=== PATIENT | female | born 1995 | race Caucasian/White ===

== ENCOUNTER 2016-12-20 09:21 | Emergency (ER) | payer OTHER ==
[~2016-12-20] VITALS: Ht 162.6 cm; Wt 79.4 kg
[2016-12-20] MEDS ORDERED: NS 500 ML IV ONE (10:45)
[2016-12-20] MEDS ORDERED: METOCLOPRAMIDE INJ 10MG/2ML VIAL (J2765) IV ONE (10:45)
[2016-12-20 11:19] LABS: BASO % 0.2 % (0.0-1.0); EOS # 0.2 K/mm3 (0.0-0.50); EOS % 1.7 % (0.0-3.0); LARGE UNSTAINED CELL # 0.1 K/mm3 (0.0-0.4); LARGE UNSTAINED CELL % 1.1 % (0.0-4.0); LYMPH # 1.9 K/mm3 (1.5-6.5); LYMPH % 21.8 % (24.0-44.0); MEAN CORPUSCULAR HEMOGLOBIN 28.8 pg (27.0-33.0); MEAN CORPUSCULAR HGB CONC 34.5 g/dl (32.0-36.5); MEAN CORPUSCULAR VOLUME 83.5 fl (80.0-96.0); MONO # 0.5 K/mm3 (0.0-0.8); MONO % 6.1 % (0.0-5.0); PLATELET COUNT, AUTOMATED 279 k/mm3 (150-450); RED CELL DISTRIBUTION WIDTH 13.5 % (11.5-14.5); WHITE BLOOD COUNT 8.7 K/mm3 (4.0-10.0)
[2016-12-20 11:36] LABS: ANION GAP 6 MEQ/L (8-16); BLOOD UREA NITROGEN 9 MG/DL (7-18); CALCIUM LEVEL 9.2 MG/DL (8.5-10.1); CARBON DIOXIDE LEVEL 26 MEQ/L (21-32); CHLORIDE LEVEL 107 MEQ/L (98-107); GLOMERULAR FILTRATION RATE > 60.0 (>60); GLUCOSE, FASTING 81 MG/DL (70-105); SODIUM LEVEL 139 MEQ/L (136-145)
[2016-12-20 11:44] VITALS: BP 134/90
[2016-12-20 11:50] LABS: METHADONE URINE NEGATIVE (NEGATIVE)
[2016-12-20] MEDS ORDERED: MACR100C3 PO (12:06)
--- NOTE | 2016-12-20 14:28 | ECGEPIP ---
Stationary ECG Study [facility] - ED Test Date: 2016-12-20 Pat Name: ARIEL FRANCO Department: Room: - Gender: F Decontamination Worker: tk : 1995 Requested By: JAMILA Britton PA-C Order Number: [id number] Reading MD: Neva Kelley Measurements Intervals [place] Rate: 82 P: 41 DC: 152 QRS: -22 QRSD: 95 T: 5 QT: 351 QTc: 411 Interpretive Statements SINUS RHYTHM BORDERLINE LEFT AXIS DEVIATION NO PRIOR FOR COMPARISON Electronically Signed On 12-20-2016 14:28:46 EDT by Neva Kelley
== END 2016-12-20 12:17 | disposition home or self-care (01) ==
LOC: M ED 10:29
DX: N39.0 Urinary tract infection, site not specified (principal); R11.0 Nausea; R42 Dizziness and giddiness; E03.9 Hypothyroidism, unspecified
CPT/HCPCS: 36415; 80048; 80306; 81001; 81025; 82550; 82553; 84443; 85025; 93005; 96374; 99284; J2765

== ENCOUNTER 2016-12-23 02:13 | Emergency (ER) | payer OTHER ==
[~2016-12-23] VITALS: Ht 162.6 cm; Wt 81.6 kg
[~2016-12-23 02:13] MED LIST: MACR100C3 PO
[2016-12-23 02:26] VITALS: BP 126/78
[2016-12-23] MEDS ORDERED: predniSONE 20 MG TAB PO ONE (04:15)
[2016-12-23] MEDS ORDERED: PRED20TA PO (04:21)
[2016-12-23] MEDS ORDERED: BACT800T5 PO (04:22)
== END 2016-12-23 04:30 | disposition home or self-care (01) ==
LOC: M ED 03:18
DX: T78.40XA Allergy, unspecified, initial encounter (principal); R21 Rash and other nonspecific skin eruption; N39.0 Urinary tract infection, site not specified; Z79.2 Long term (current) use of antibiotics

== ENCOUNTER 2017-03-08 05:11 | Emergency (ER) | payer OTHER ==
[~2017-03-08] VITALS: Ht 162.6 cm; Wt 77.3 kg
[~2017-03-08 05:11] MED LIST changes: +BACT800T5 PO; -MACR100C3 PO; +MACR100C43 PO; +PRED20TA PO
[2017-03-08] MEDS ORDERED: NS 1,000 ML IV ONE (06:15)
[2017-03-08 06:33] LABS: BASO % 0.4 % (0.0-1.0); EOS # 0.2 K/mm3 (0.0-0.50); EOS % 2.2 % (0.0-3.0); LARGE UNSTAINED CELL # 0.1 K/mm3 (0.0-0.4); LARGE UNSTAINED CELL % 1.2 % (0.0-4.0); MEAN CORPUSCULAR HEMOGLOBIN 29.8 pg (27.0-33.0); MEAN CORPUSCULAR HGB CONC 34.8 g/dl (32.0-36.5); MEAN CORPUSCULAR VOLUME 85.6 fl (80.0-96.0); MONO # 0.4 K/mm3 (0.0-0.8); MONO % 4.7 % (0.0-5.0); NEUTROPHILS % 57.6 % (36.0-66.0); PLATELET COUNT, AUTOMATED 327 k/mm3 (150-450); RED CELL DISTRIBUTION WIDTH 13.5 % (11.5-14.5); WHITE BLOOD COUNT 8.6 K/mm3 (4.0-10.0)
[2017-03-08 06:44] LABS: CONTROL LINE HCG INT CTR LINE PRESENT
[2017-03-08 06:47] LABS: ANION GAP 8 MEQ/L (8-16); BLOOD UREA NITROGEN 14 MG/DL (7-18); CALCIUM LEVEL 8.3 MG/DL (8.5-10.1); CARBON DIOXIDE LEVEL 25 MEQ/L (21-32); CHLORIDE LEVEL 108 MEQ/L (98-107); CREATININE FOR GFR 0.65 MG/DL (0.55-1.02); GLOMERULAR FILTRATION RATE > 60.0 (>60); GLUCOSE, FASTING 98 MG/DL (70-105); POTASSIUM SERUM 3.8 MEQ/L (3.5-5.1); SODIUM LEVEL 141 MEQ/L (136-145)
[2017-03-08 07:23] LABS: ABG BASE EXCESS -5.3 (-2.0-2.0); ABG HCO3 17.2 MEQ/L (22.0-26.0); ABG PARTIAL PRESSURE CO2 26.1 mmHg (35.0-45.0); ABG PARTIAL PRESSURE O2 213.4 mmHg (75.0-100.0); ABG STANDARD HCO3 20.2 MEQ/L (22.0-26.0); ABG pH (ARTERIAL) 7.437 UNITS (7.350-7.450)
[2017-03-08 08:37] VITALS: BP 128/64
== END 2017-03-08 08:38 | disposition home or self-care (01) ==
LOC: M ED 05:11
DX: R42 Dizziness and giddiness (principal)

== ENCOUNTER 2017-03-12 19:26 | Emergency (ER) | payer OTHER ==
[~2017-03-12] VITALS: Ht 162.6 cm; Wt 81.5 kg
[2017-03-12] MEDS ORDERED: ONDANSETRON 4MG/2ML VIAL (J2405) IV ONE (22:45)
[2017-03-12] MEDS ORDERED: KETOROLAC 30 MG/ML VIAL (J1885) IV ONE (22:45)
[2017-03-12 23:21] LABS: MICROSCOPIC INDICATED? MAN NO (NO)
[2017-03-12 23:22] LABS: BASO % 0.4 % (0.0-1.0); EOS # 0.2 K/mm3 (0.0-0.50); EOS % 1.7 % (0.0-3.0); LARGE UNSTAINED CELL # 0.2 K/mm3 (0.0-0.4); LARGE UNSTAINED CELL % 1.2 % (0.0-4.0); LYMPH # 4.3 K/mm3 (1.5-6.5); LYMPH % 32.3 % (24.0-44.0); MEAN CORPUSCULAR HGB CONC 34.5 g/dl (32.0-36.5); MEAN CORPUSCULAR VOLUME 87.1 fl (80.0-96.0); MONO # 0.5 K/mm3 (0.0-0.8); MONO % 3.9 % (0.0-5.0); NEUTROPHILS # 7.7 K/mm3 (1.8-7.7); NEUTROPHILS % 60.5 % (36.0-66.0); PLATELET COUNT, AUTOMATED 389 k/mm3 (150-450); RED CELL DISTRIBUTION WIDTH 13.3 % (11.5-14.5); WHITE BLOOD COUNT 12.7 K/mm3 (4.0-10.0)
[2017-03-12 23:45] LABS: ANION GAP 7 MEQ/L (8-16); BLOOD UREA NITROGEN 10 MG/DL (7-18); CALCIUM LEVEL 9.4 MG/DL (8.5-10.1); CARBON DIOXIDE LEVEL 29 MEQ/L (21-32); CHLORIDE LEVEL 102 MEQ/L (98-107); CREATININE FOR GFR 0.66 MG/DL (0.55-1.02); GLOMERULAR FILTRATION RATE > 60.0 (>60); GLUCOSE, FASTING 94 MG/DL (70-105); MAGNESIUM LEVEL 2.4 MG/DL (1.8-2.4); POTASSIUM SERUM 3.6 MEQ/L (3.5-5.1); SODIUM LEVEL 138 MEQ/L (136-145)
--- NOTE | 2017-03-13 00:40 | REPUSA ---
CLINICAL HISTORY: Syncope. TECHNIQUE: Multiple axial brain CT scan sections were obtained from base to vertex without contrast a dministration. COMMENTS: The study shows normal configuration of sella turcica. There are no intra or extra-axial collections. There is no mass effect or midline shift. There is no evidence of hematoma formation. No hydrocephal us is present. No abnormal calcifications are noted. No significant abnormalities are seen either in the posterior fossa or supratentorial compartment. The sinuses and mastoid air cells are patent. IMPRESSION: No evidence of acute intracranial pathology. Thank you for your kind referral of this patient.
[2017-03-13 00:56] VITALS: BP 122/78
== END 2017-03-13 00:56 | disposition home or self-care (01) ==
LOC: M ED 19:26
DX: R51 Headache (principal); E03.9 Hypothyroidism, unspecified
CPT/HCPCS: 70450; 80048; 81002; 83735; 84443; 85025; 87880; 96374; 96375; 99284; J1885; J2405

== ENCOUNTER 2017-03-17 05:36 | Emergency (ER) | payer OTHER, SELFPAY ==
[~2017-03-17] VITALS: Ht 162.6 cm; Wt 77.2 kg
[2017-03-17 07:47] LABS: BASO % 0.3 % (0.0-1.0); EOS # 0.2 K/mm3 (0.0-0.50); EOS % 2.3 % (0.0-3.0); LARGE UNSTAINED CELL # 0.1 K/mm3 (0.0-0.4); LARGE UNSTAINED CELL % 1.5 % (0.0-4.0); LYMPH # 2.5 K/mm3 (1.5-6.5); LYMPH % 27.6 % (24.0-44.0); MEAN CORPUSCULAR HEMOGLOBIN 29.2 pg (27.0-33.0); MEAN CORPUSCULAR VOLUME 83.6 fl (80.0-96.0); MONO # 0.5 K/mm3 (0.0-0.8); MONO % 5.2 % (0.0-5.0); NEUTROPHILS # 5.5 K/mm3 (1.8-7.7); NEUTROPHILS % 63.1 % (36.0-66.0); PLATELET COUNT, AUTOMATED 331 k/mm3 (150-450); RED CELL DISTRIBUTION WIDTH 13.3 % (11.5-14.5); WHITE BLOOD COUNT 8.7 K/mm3 (4.0-10.0)
[2017-03-17 08:12] LABS: ANION GAP 6 MEQ/L (8-16); BLOOD UREA NITROGEN 9 MG/DL (7-18); CALCIUM LEVEL 9.3 MG/DL (8.5-10.1); CARBON DIOXIDE LEVEL 28 MEQ/L (21-32); CHLORIDE LEVEL 107 MEQ/L (98-107); CREATININE FOR GFR 0.62 MG/DL (0.55-1.02); GLOMERULAR FILTRATION RATE > 60.0 (>60); GLUCOSE, FASTING 90 MG/DL (70-105); POTASSIUM SERUM 3.9 MEQ/L (3.5-5.1); SODIUM LEVEL 141 MEQ/L (136-145)
[2017-03-17 08:17] LABS: HCG, SERUM QUANTITATIVE < 1.0 MIU/ML
--- NOTE | 2017-03-17 08:26 | ECGEPIP ---
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
--- NOTE | 2017-03-17 08:56 | REP ---
Chest x-ray: Two views. History: Chest pain. . Comparison study: No comparisons . Findings: The lungs are well inflated and free of infiltrate. The pleural angles are sharp. The heart size is normal. Pulmonary vasculature is not increased. No significant bony abnormality is seen. Impression: Negative chest x-ray. Signed by Sawyer Villalpando MD 03/17/2017 08:48 A
[2017-03-17 09:13] VITALS: BP 132/87
== END 2017-03-17 09:14 | disposition home or self-care (01) ==
LOC: M ED 05:36
DX: R07.9 Chest pain, unspecified (principal); E03.9 Hypothyroidism, unspecified

== ENCOUNTER 2017-05-03 04:19 | Emergency (ER) | payer OTHER ==
[~2017-05-03] VITALS: Ht 162.6 cm; Wt 78.6 kg
[2017-05-03 07:11] VITALS: BP 127/91
--- NOTE | 2017-05-03 08:18 | REP ---
Chest x-ray: Two views. History: Cough . Comparison study: March 17, 2017 . Findings: The lungs are well inflated and free of infiltrate. The pleural angles are sharp. The heart size is normal. Pulmonary vasculature is not increased. No significant bony abnormality is seen. Impression: Negative chest x-ray. Signed by Sawyer Villalpando MD 05/03/2017 08:09 A
[2017-05-03] MEDS ORDERED: TESS100C PO (08:27)
[2017-05-03] MEDS ORDERED: CEFD300CAP FT (08:27)
== END 2017-05-03 08:34 | disposition home or self-care (01) ==
LOC: M ED 04:19
DX: J32.9 Chronic sinusitis, unspecified (principal)

== ENCOUNTER 2017-05-05 20:15 | Emergency (ER) | payer OTHER ==
[~2017-05-05] VITALS: Ht 162.6 cm; Wt 77.3 kg
[~2017-05-05 20:15] MED LIST changes: +CEFD300CAP FT; +TESS100C PO
[2017-05-06 00:50] LABS: ANION GAP 7 MEQ/L (8-16); BLOOD UREA NITROGEN 14 MG/DL (7-18); CALCIUM LEVEL 9.3 MG/DL (8.5-10.1); CARBON DIOXIDE LEVEL 28 MEQ/L (21-32); CHLORIDE LEVEL 104 MEQ/L (98-107); CREATININE FOR GFR 0.61 MG/DL (0.55-1.02); GLOMERULAR FILTRATION RATE > 60.0 (>60); GLUCOSE, FASTING 97 MG/DL (70-105); POTASSIUM SERUM 4.4 MEQ/L (3.5-5.1); SODIUM LEVEL 139 MEQ/L (136-145)
[2017-05-06 00:56] LABS: HCG, SERUM QUANTITATIVE < 1.0 MIU/ML
[2017-05-06 01:54] VITALS: BP 117/73
--- NOTE | 2017-05-06 11:42 | REP ---
REASON: Intermittent chest pain. COMPARISON: 3 days ago. FINDINGS: The superior mediastinal structures are midline. The cardiac silhouette is unremarkable in size, shape, and position. The diaphragmatic surfaces of the lungs are regular, and the costophrenic angles are clear. The pulmonary neal are clear. The imaged osseous structures are intact. IMPRESSION: There is no acute cardiopulmonary disease. No change. Signed by Claus Gaitan DO 05/06/2017 10:40 A
== END 2017-05-06 01:54 | disposition home or self-care (01) ==
LOC: M ED 20:15
DX: R07.9 Chest pain, unspecified (principal); E03.9 Hypothyroidism, unspecified

== ENCOUNTER 2017-06-12 08:21 | Emergency (ER) | payer OTHER ==
[~2017-06-12] VITALS: Ht 162.6 cm; Wt 81.8 kg
[2017-06-12 09:41] LABS: BASO % 0.2 % (0.0-1.0); EOS # 0.1 10^3/uL (0.0-0.50); EOS % 1.1 % (0.0-3.0); IMMATURE GRANULOCYTE % 0.4 % (0-0); LYMPH % 21.6 % (24.0-44.0); MEAN CORPUSCULAR HEMOGLOBIN 29.4 pg (27.0-33.0); MEAN CORPUSCULAR HGB CONC 34.8 g/dl (32.0-36.5); MEAN CORPUSCULAR VOLUME 84.6 fl (80.0-96.0); MONO # 0.5 10^3/uL (0.0-0.8); MONO % 5.5 % (0.0-5.0); NEUTROPHILS # 6.5 10^3/uL (1.8-7.7); NEUTROPHILS % 71.2 % (36.0-66.0); PLATELET COUNT, AUTOMATED 332 10^3/uL (150-450); WHITE BLOOD COUNT 9.1 10^3/uL (4.0-10.0)
[2017-06-12 10:44] LABS: ALBUMIN 3.8 GM/DL (3.2-5.2); ALBUMIN/GLOBULIN RATIO 1.06 (1.00-1.93); ALKALINE PHOSPHATASE 50 U/L (45-117); ALT/SGPT 44 U/L (12-78); ANION GAP 6 MEQ/L (8-16); AST/SGOT 14 U/L (7-37); BILIRUBIN,TOTAL 0.5 MG/DL (0.2-1.0); BLOOD UREA NITROGEN 8 MG/DL (7-18); CALCIUM LEVEL 9.1 MG/DL (8.5-10.1); CARBON DIOXIDE LEVEL 27 MEQ/L (21-32); CHLORIDE LEVEL 106 MEQ/L (98-107); CREATININE FOR GFR 0.61 MG/DL (0.55-1.02); GLOMERULAR FILTRATION RATE > 60.0 (>60); GLUCOSE, FASTING 91 MG/DL (70-105); HCG, SERUM QUANTITATIVE 2196 MIU/ML; POTASSIUM SERUM 3.7 MEQ/L (3.5-5.1); SODIUM LEVEL 139 MEQ/L (136-145); TOTAL PROTEIN 7.4 GM/DL (6.4-8.2)
[2017-06-12] MEDS ORDERED: PRENTAB55 PO (10:48)
[2017-06-12 10:55] VITALS: BP 142/99
--- NOTE | 2017-06-12 11:10 | REP ---
FIRST TRIMESTER ULTRASOUND: Real-time sonographic evaluation of the pelvis performed utilizing transabdominal and endovaginal technique. The uterus measures 9.7 x 4.5 x 6.1 cm. Endometrial thickness is 13 mm. A tiny cystic area in the endometrium probably represents a tiny gestational sac approximately 3 mm in mean diameter. This would correspond as an estimated gestational age of 5 weeks. No yolk sac or pole is seen. There is a trace free fluid in the cul-de-sac. Right ovary measures 4.7 x 1.4 x 3.6 cm and contains a complex cystic structure probably representing a hemorrhagic corpus luteum 1.7 x 1.0 x 1.6 cm. Left ovary measures 2.9 x 1.7 x 2.5 cm. No torsion is seen. No blood flow is seen in each ovary with duplex Doppler evaluation, RI right ovary 0.46 and left ovary 0.43. Findings may represent very early intrauterine gestation, missed versus ectopic . Suggest correlation with serial quantitative beta hCG values. Signed by Juice Dang MD 06/12/2017 01:29 P
== END 2017-06-12 10:54 | disposition home or self-care (01) ==
LOC: M ED 08:21
DX: O26.891 Other specified pregnancy related conditions, first trimester (principal); R10.9 Unspecified abdominal pain; Z3A.01 Less than 8 weeks gestation of pregnancy

== ENCOUNTER → 2017-06-28 | Outpatient (CLI) | payer OTHER ==
[~2017-06-28] MED LIST changes: +PRENTAB55 PO
--- NOTE | 2017-06-28 14:12 | REP ---
Emergency first trimester OB sonography: History: Supervision of . Comparison sonography June 12, 2017 showed a small intrauterine sac like structure which was nonspecific. The patient is 8 weeks 4 days by LMP. Findings: Transabdominal transvaginal scanning are performed. Uterine dimensions are 9.9 x 5.2 x 6.2 cm. There is a gestational sac in the uterus with a mean sac size diameter calculated at 17 mm. This corresponds with a 6 week 4 day gestational age estimate. No yolk sac or embryonic pole is visible. There is a subchorionic hemorrhage is visible inferior to the gestational sac measuring 4.0 x 3.0 cm. No free fluid is seen in the cul-de-sac. The right ovary measures 4.4 x 1.7 x 3.6 cm. It contains a hypoechoic follicle cyst 1.7 cm in diameter. The left ovary measures 2.1 x 2.0 x 2.0 cm. Doppler flow is normal to both ovaries. Resistive indices are 0.52 on the right and 0.75 on the left. Impression: Empty intrauterine gestational sac with mean sac size diameter 17 mm, 6 weeks 4 day estimate. No free fluid or adnexal mass lesion. Findings most compatible with blighted ovum. Clinical and possibly sonographic followup advised. Signed by Sawyer Villalpando MD 06/28/2017 04:08 P
== END ==
LOC: M LAB 09:46
PROVIDERS: ATTEND Midwife
DX: Z34.80 Encounter for supervision of other normal pregnancy, unspecified trimester (principal)

== ENCOUNTER 2017-07-29 15:53 | Emergency (ER) | payer OTHER | END 2017-07-29 17:23 | disposition left against medical advice (07) | LOC: M ED 15:53 | DX: Z53.29 Procedure and treatment not carried out because of patient's decision for other reasons (principal) ==

== ENCOUNTER 2017-07-29 19:49 | Emergency (ER) | payer OTHER | END 2017-07-29 22:16 | disposition left against medical advice (07) | LOC: M ED 19:49 | DX: Z53.29 Procedure and treatment not carried out because of patient's decision for other reasons (principal) ==

== ENCOUNTER 2017-09-21 20:35 | Emergency (ER) | payer OTHER ==
[2017-09-21] MEDS: predniSONE 20 MG TAB PO (21:45)
== END 2017-09-21 22:26 | disposition home or self-care (01) ==
LOC: M ED 20:35
DX: M94.0 Chondrocostal junction syndrome [Tietze] (principal)
CPT/HCPCS: 99283